=== PATIENT | female | born 1945 | race Caucasian/White ===

== ENCOUNTER → 2024-11-20 | Outpatient (CLI) | payer MEDICARE, MEDICAID, SELFPAY ==
--- NOTE | 2024-11-20 13:30 | XR_ITS ---
Examination: CT abdomen and pelvis without contrast. Coronal 3-D reconstructions. Sagittal 2-D reconstructions. Date and time of exam:November 20, 2024 1331 hours INDICATIONS: Right lower abdominal pain 13 pound weight loss in the last year CTDI: vol (mGy): 5.03 DLP: (mGycm): 246 Technique: Axial images of the abdomen have been obtained, 3 mm slice thickness Intravenous contrast material has not been administered. Low dose protocols were performed. One or more of the following dose reduction techniques were used; automated exposure control, adjustment of the mA and/or KV according to patient size, use of iterative reconstruction technique. Findings: Small pericardial effusion No focal liver lesions No gallstones No pancreatic mass 4 mm lower pole left renal calculus Abdominal aortic calcification no aneurysmal dilatation No bowel obstruction Normal appendix No diverticulitis No pelvic mass Urinary bladder wall thickening up to 5 mm Prominent lumbar spondylosis IMPRESSION: 4 mm lower pole left renal calculus Normal appendix Mild cystitis pattern
== END | disposition home or self-care (01) ==
PROVIDERS: Referring Provider Nurse Practitioner; Visit Provider Nurse Practitioner
DX: N20.0 Calculus of kidney (principal)
CPT/HCPCS: 74176

== ENCOUNTER 2024-12-12 07:55 | Day surgery (SDC) | payer MEDICARE, MEDICAID, SELFPAY ==
[2024-12-12] VITALS (10 sets, daily range): BP systolic 122–171; BP diastolic 59–89; PULSE 61–75; RESP 13–20; TEMP 36.3–36.7; O2SAT 97–100; BMI 20.2
[2024-12-12] MEDS: SODIUM CHLORIDE 0.9% 500 ML 500 ML 20 ML IV (08:58)
[2024-12-12] MEDS: DiphenhydrAMINE INJ 50 MG/ML VIAL 25 MG IV (09:49)
[2024-12-12] MEDS: ONDANSETRON INJ 2 MG/ML INJ 2 ML 4 MG IV (09:49)
[2024-12-12] MEDS: fentaNYL CIT INJ 50 mCg/ML AMP 2ML (ASD USE ONLY) IV (10:03)
[2024-12-12] MEDS: MIDAZOLAM INJ 1 MG/ML VIAL 2 ML (ASD USE ONLY) 2 MG IV (10:03)
--- NOTE | 2024-12-12 12:15 | SUR.PHASEII ---
1016: Pt received in [facility]. Report from Mary MILLER. Pt obtunded. Resp even, unlabored. VS stable. No distress observed. 1035: Pt more awake, alert. VS stable. Denies pain. Sitting up tolerating po fluids with no difficulty swallowing and no n/v. 1106: Pt fully awake, oriented. Pt assisted to restroom. Ambulation steady. Pt dressed and in transport chair. Pt and friend stated understanding of discharge instructions. Pt discharged from [facility] in stable condition.
== END 2024-12-12 11:06 | disposition home or self-care (01) ==
PROVIDERS: PCP Nurse Practitioner; Referring Provider Specialist; Visit Provider Specialist
PROC: 0DBE8ZX Excision of Large Intestine, Via Natural or Artificial Opening Endoscopic, Diagnostic (ICD-10-PCS; CPT 45380; principal; 2024-12-12 09:00)
PROC: (CPT 43239; 2024-12-12 09:00)
DX: K62.1 Rectal polyp (principal); D12.2 Benign neoplasm of ascending colon; K20.90 Esophagitis, unspecified without bleeding; K29.70 Gastritis, unspecified, without bleeding
CPT/HCPCS: 45385; 43239; A4649; J1200; J2250; J2405; J3010; J7040

== ENCOUNTER → 2024-12-16 | Outpatient (CLI) | payer MEDICARE, MEDICAID, SELFPAY ==
--- NOTE | 2024-12-16 12:00 | XR_ITS ---
Examination: CT chest with intravenous contrast CT abdomen with intravenous contrast CT pelvis with intravenous contrast 2-D coronal and sagittal reconstructions Time of exam: December 16, 2024 1116 hours INDICATIONS: Right lower quadrant abdominal pain one year, history 4 mm lower pole left renal calculus on CT study November 20, 2024 CTDI: vol (mGy) : 11.5 DLP: (mGycm): 128 Technique: Multiple axial images of the chest, abdomen and pelvis with intravenous contrast, 3.0 mm slice thickness. Images obtained post intravenous injection Isovue 370 60 cc. 2-D sagittal and coronal reconstructions. Low dose protocols were performed. One or more of the following dose reduction techniques were used; automated exposure control, adjustment of the mA and/or KV according to patient size, use of iterative reconstruction technique. Findings: Multiple left thyroid nodule subcentimeter No thoracic aortic aneurysmal dilatation Pulmonary artery opacification is suboptimal No mediastinal lymphadenopathy No pneumonia or pulmonary edema or pleural disease Trace pericardial thickening No focal liver or splenic lesions No gallstones No pancreatic mass 4 mm calculus lower pole left kidney Normal appendix No bowel obstruction No diverticulitis Atrophic uterus with areas of calcification Urinary bladder wall thickening up to 7 mm Significant osteopenia IMPRESSION: No mediastinal adenopathy, no pneumonia or pulmonary edema or pleural disease 4 mm calculus lower pole left kidney Urinary bladder wall thickening, mild, consider cystitis
== END | disposition home or self-care (01) ==
PROVIDERS: Referring Provider Specialist; Visit Provider Specialist
DX: N28.89 Other specified disorders of kidney and ureter (principal); N32.89 Other specified disorders of bladder
CPT/HCPCS: 71260; 74177; A4649; Q9967

== ENCOUNTER 2024-12-22 07:48 | Outpatient (RCR) | payer MEDICARE, MEDICAID, SELFPAY | END 2025-01-12 23:59 | disposition home or self-care (01) | LOC: SCTC 07:48 | PROVIDERS: PCP Nurse Practitioner; Referring Provider Nurse Practitioner; Visit Provider Nurse Practitioner Family | DX: R77.8 Other specified abnormalities of plasma proteins (principal); Z86.2 Personal history of diseases of the blood and blood-forming organs and certain disorders involving the immune mechanism; K20.90 Esophagitis, unspecified without bleeding; K29.70 Gastritis, unspecified, without bleeding | CPT/HCPCS: 99213; G0463 ==

== ENCOUNTER → 2025-01-16 | Outpatient (CLI) | payer MEDICARE, MEDICAID, SELFPAY ==
[2025-01-16 10:33] LABS: Basophils % (Auto) 1 % (0-2.5); Eosinophils # (Auto) 0.1 Thou/mm3 (0.0-0.5); Eosinophils % (Auto) 3 % (0-10); Hematocrit 34.6 % (36.0-46.0); Hemoglobin 11.7 g/dL (12.0-16.0); Immature Granulocytes % (Auto) 0 % (0-0); Immature Granulocytes Auto 0.01 Thou/mm3 (0.00-0.00); Immature Reticulocyte Fraction 9.3 % (3.0-15.9); Lymphocytes # (Auto) 1.1 Thou/mm3 (1.0-4.8); Lymphocytes % (Auto) 22 % (10-50); Mean Corpuscular HGB Conc 33.8 g/dl (31.0-37.0); Mean Corpuscular Hemoglobin 30.6 pg (25.0-35.0); Mean Corpuscular Volume 91 fL (80-100); Monocytes # (Auto) 0.4 Thou/mm3 (0.0-0.8); Monocytes % (Auto) 8 % (0-12); Neutrophils # (Auto) 3.2 Thou/mm3 (1.8-7.7); Neutrophils % (Auto) 66 % (37-80); Nucleated Red Blood Cell % 0 /100 WBC (0); Platelet Count 279 Thou/mm3 (140-440); RDW Standard Deviation 43.4 fL (36.4-46.3); Red Blood Count 3.82 Miln/mm3 (4.00-5.20); Reticulocyte % (Auto) 1.3 % (0.5-1.5); Reticulocyte Absolute Auto 49.7 Biln/L (25.0-75.0); Reticulocyte Hgb Content 34.7 pg (28.0-35.0); White Blood Count 4.8 Thou/mm3 (3.6-11.0)
[2025-01-16 10:54] LABS: Ferritin 397 ng/mL (7.3-270.7); Iron 129 mcg/dL (50-170); Percent Iron Saturation 42 % (20-55); Total Iron Binding Capacity 302 mcg/dL (250-425); Unsaturated Iron Binding 173 (225-295)
[2025-01-16 10:56] LABS: Alanine Aminotransferase 25 U/L (10-49); Albumin/Globulin Ratio 1.6 (1.2-2.2); Alkaline Phosphatase 43 U/L (46-116); Anion Gap 8 (7-16); Aspartate Amino Transferase 22 U/L (0-34); BUN/Creatinine Ratio 29 Ratio (12-20); Bilirubin,Total 0.8 mg/dL (0.3-1.2); Blood Urea Nitrogen 20 mg/dL (9-23); C-Reactive Protein < 0.5 mg/dL (0.0-0.9); Calcium 8.9 mg/dL (8.3-10.6); Calcium (Corrected) 8.9 mg/dL (8.5-10.1); Carbon Dioxide 30.8 mMol/L (20.0-31.0); Chloride 103 mMol/L (98-107); Creatinine (Component) 0.7 mg/dL (0.6-1.3); Globulin 2.5 gm/dL (2.3-3.5); Glucose 121 mg/dL (74-106); LDH (Lactate Dehydrogenase) 145 U/L (120-246); Osmolality,Calculated 286 (275-295); Potassium 3.9 mMol/L (3.4-5.1); Sodium 142 mMol/L (136-145); Total Protein 6.5 gm/dL (5.7-8.2); eGFR > 60 See Note
[2025-01-16 14:05] LABS: Folate 17.04 ng/mL (>5.38)
[2025-01-16 16:15] LABS: HIV (1&2) Antibody Rapid Non-Reactive
[2025-01-16 16:16] LABS: Hepatitis A Antibody IgM Non Reactive (Non React); Hepatitis B Core Antibody IgM Non Reactive (Non React); Hepatitis B Surface Antigen Non Reactive (Non React); Hepatitis C Antibody Non Reactive (Non React); Vitamin B12 646 pg/mL (211-911)
== END | disposition home or self-care (01) ==
LOC: SCTO 08:59
PROVIDERS: PCP Family Medicine; Referring Provider Nurse Practitioner Family; Visit Provider Nurse Practitioner Family
DX: R77.8 Other specified abnormalities of plasma proteins (principal)
CPT/HCPCS: 36415; 80053; 80074; 82607; 82728; 82746; 83540; 83550; 83615; 85025; 85046; 86140; 86703

== ENCOUNTER → 2025-02-04 | Outpatient (CLI) | payer MEDICARE, MEDICAID, SELFPAY ==
[2025-02-04 08:41] LABS: Flow Cytometry* See Sep Rpt; Misc Send Out* See Sep Rpt
[2025-02-04 09:35] LABS: Basophils % (Auto) 0 % (0-2.5); Eosinophils # (Auto) 0.2 Thou/mm3 (0.0-0.5); Eosinophils % (Auto) 3 % (0-10); Hematocrit 34.9 % (36.0-46.0); Hemoglobin 11.9 g/dL (12.0-16.0); Immature Granulocytes % (Auto) 0 % (0-0); Lymphocytes # (Auto) 1.1 Thou/mm3 (1.0-4.8); Lymphocytes % (Auto) 23 % (10-50); Mean Corpuscular HGB Conc 34.1 g/dl (31.0-37.0); Mean Corpuscular Hemoglobin 30.3 pg (25.0-35.0); Mean Corpuscular Volume 89 fL (80-100); Monocytes # (Auto) 0.5 Thou/mm3 (0.0-0.8); Monocytes % (Auto) 9 % (0-12); Neutrophils # (Auto) 3.3 Thou/mm3 (1.8-7.7); Neutrophils % (Auto) 65 % (37-80); Nucleated Red Blood Cell % 0 /100 WBC (0); Platelet Count 222 Thou/mm3 (140-440); RDW Standard Deviation 42.9 fL (36.4-46.3); Red Blood Count 3.93 Miln/mm3 (4.00-5.20)
[2025-02-04 09:55] LABS: Free T3 3.4 pg/mL (2.3-4.2); Free T4 (Free Thyroxine) 1.49 ng/dL (0.89-1.76); Thyroid Stimulating Hormone 2.01 uIU/mL (0.55-4.78)
== END | disposition home or self-care (01) ==
LOC: COPL 08:08
PROVIDERS: PCP Family Medicine; Referring Provider Specialist; Visit Provider Nurse Practitioner Family
DX: R79.89 Other specified abnormal findings of blood chemistry (principal); R63.4 Abnormal weight loss; E04.1 Nontoxic single thyroid nodule; R77.8 Other specified abnormalities of plasma proteins
CPT/HCPCS: 36415; 84439; 84443; 84481; 85025

== ENCOUNTER → 2025-02-16 | Outpatient (CLI) | payer MEDICARE, MEDICAID, SELFPAY ==
--- NOTE | 2025-02-16 14:00 | XR_ITS ---
Examination: MRI abdomen with intravenous contrast. MRI abdomen without intravenous contrast. Date and time of exam: 2024 at 1457 hours beginning 7 months ago, diagnosis of the specified abnormalities of plasma proteins Comparison CT abdomen and pelvis November 20, 2024 INDICATIONS: Left lower abdominal pain Technique: Multiple axial, sagittal and coronal sections of the abdomen obtained. Transverse images, TR 6020, TE 107. T1 weighted transverse images, TR 582, TE 9.5. T2-weighted sagittal images, TR 4000, TE 105. T2-weighted sagittal images, TR 4000, TE 5. Coronal images, TR 4210, TE 107. Axial and coronal images are obtained post 20 cc intravenous injection, gadolinium. Findings: No focal liver or splenic lesions Postcontrast images demonstrate no abnormal enhancing liver splenic or renal lesions No gallstones No common common bile duct or common hepatic duct stones No pancreatic mass or peripancreatic edema No hydronephrosis Negative for ascites Aorta normal size Spleen not enlarged No abdominal lymphadenopathy IMPRESSION: No focal liver lesions Normal gallbladder. Normal common hepatic common bile duct
--- NOTE | 2025-02-16 15:00 | XR_ITS ---
Examination: Thyroid sonography complete TECHNIQUE: Grayscale sonographic images thyroid lobes Exam date and time: February 16, 2025 1359 hours INDICATIONS: Abnormal thyroid function on laboratory examination this month FINDINGS: Right thyroid 4.6 cm Lower pole septated cyst 4 x 4 millimeter Left thyroid 4.7 cm Midpole nodule 10 x 10 mm Lower pole nodule 2.2 cm x 1.5 cm, 1.1 x 0.9 cm IMPRESSION: Left thyroid nodules as above, consider ultrasound-guided fine-needle aspiration of the largest nodule in the lower pole left thyroid
== END | disposition home or self-care (01) ==
LOC: SMRI 13:22
PROVIDERS: PCP Nurse Practitioner Family; Referring Provider Nurse Practitioner Family; Visit Provider Specialist
DX: R77.8 Other specified abnormalities of plasma proteins (principal); E04.2 Nontoxic multinodular goiter
CPT/HCPCS: 74183; 76536; A9579

== ENCOUNTER 2025-03-04 13:14 | Outpatient (RCR) | payer MEDICARE, MEDICAID, SELFPAY | END 2025-03-14 23:59 | disposition home or self-care (01) | LOC: SCTC 13:14 | PROVIDERS: PCP Family Medicine; Referring Provider Nurse Practitioner Family; Visit Provider Nurse Practitioner Family | DX: R79.0 Abnormal level of blood mineral (principal); R63.4 Abnormal weight loss; Z68.20 Body mass index [BMI] 20.0-20.9, adult; H91.90 Unspecified hearing loss, unspecified ear | CPT/HCPCS: 99212; G0463 ==

== ENCOUNTER 2025-06-10 14:25 | Outpatient (RCR) | payer MEDICARE, MEDICAID, SELFPAY ==
--- NOTE | 2025-06-15 22:16 | CTCFLWUP_ITS ---
Patient: CHINEDU ROCK : 1945 Page 2 of 4 FOLLOW UP NOTE DATE OF SERVICE: 06/10/2025 NAME: CHINEDU ROCK ACCOUNT: [id number] : 1945 AGE: 79 INTERVAL HISTORY: Mrs. Gissel Mcneil, a 79-year-old woman with a history of iron deficiency, presents for follow-up of elevated ferritin levels and recent weight loss. Despite a comprehensive workup, including imaging and endoscopic procedures, no malignancy or significant abnormalities have been found. She reports a weight loss of 13 pounds over the past year . ONCOLOGY HISTORY: DIAGNOSIS: Elevated ferritin HISTORY OF PRESENT ILLNESS: PREVIOUS NOTE: 79-year-old female is being seen today up [facility] for consultation consult was due to elevated ferritin levels of 606 on 10/03/2024 and on 12/03/2021 ferritin levels were 611. Patient also complaining of unintentional weight loss of 13 pounds in 1 year. Patient currently weighs 106 LB. Patient is accompanied by stepdaughter, Nicole. Patient recently had an EGD and colonoscopy by Dr. Landry, 12/12/2024. EGD and colonoscopy pathology report was negative for malignancy. Repeat colonoscopy in 5 years for surveillance, 2 polyps were removed for colonoscopy. Patient denies known history of liver disease. Denies known history of kidney disease. Denies alcohol use, denies tobacco use. Patient denies fever. 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 Tobacco?Use:?Denies ETOH?Use:?Denies Drug?Note:?Denies Social History Note:?Lives with ex - SHOCHET HISTORY: Menarche?-?Age:?15 Menopause:?Age?55 :?0 Live?Births:?0 MEDICATIONS: 1. alendronate - 70 mg 1 tab Weekly 2. atorvastatin - 10 mg 1 tab Daily 3. metFORMIN - 500 mg 1 tab Daily 4. Vitamin D3 - 5,000 unit 1 tab Weekly Medications Last Reconciled by Maria G Cortez MD on 06/10/2025 ALLERGIES: No Known Drug Allergies REVIEW OF SYSTEMS: A complete 14-point review of systems was performed and is negative except as noted in interval history. PHYSICAL EXAMINATION: VITAL SIGNS: Temperature?97.5, B/P?147/73, Oxygen?Saturation?97% Weight?114?lbs PAIN: 0 - No pain ECOG Performance Status: 0 - Asymptomatic and fully active GENERAL APPEARANCE: Appears well, in no apparent distress, appropriately interactive. HEENT: Normocephalic, no temporal wasting, normal conjunctiva, no scleral icterus, normal hearing, lips without lesions, neck normal range of motion, no lymphadenopathy CARDIOVASCULAR: Normal heart sounds PULMONARY: Normal respiratory effort, no respiratory distress or use of accessory muscles, speaking in full sentences, no tachypnea. EXTREMITIES: No pedal edema or cyanosis. SKIN: Normal skin appearance. NEUROLOGIC: Alert and oriented x4. PSHYCHIATRIC: Appropriate affect, mood normal, behavior normal, intact thought and speech. LABORATORY DATA: I have personally reviewed and interpreted each of the patient?s relevant lab tests, abnormal findings are below: Date 01/16/25 02/04/25 ??WHITE?BLOOD?COUNT?(Thou/mm3) 4.8 5.0 ??RED?BLOOD?COUNT?(Miln/mm3) 3.82?L 3.93?L ??HEMOGLOBIN?(gm/dl) 11.7?L 11.9?L ??HEMATOCRIT?(%) 34.6?L 34.9?L ??PLATELET?COUNT?(Thou/mm3) 279 222 ??NEUTROPHILS?%,?AUTO?(%) 66 65 ??LYMPH?%,?AUTO?(%) 22 23 ??NEUTROPHILS,?AUTO?(Thou/mm3) 3.2 3.3 ??RETICULOCYTE?ABSOLUTE?AUTO?(Biln/L) 49.7 ? ??TOTAL?IRON?BINDING?CAP?(S*)?(mcg/dL) 302 ? ??UNBOUND?IBC?(mcg/dL) 173?L ? ASSESSMENT/PLAN: Mrs. Gissel Mcneil, a 79-year-old female with a history of iron deficiency, presents for follow-up of elevated ferritin levels and recent weight loss. Elevated ferritin levels Assessment: Patient was initially referred for consultation due to elevated ferritin levels of 606 in September 2024. Labs on 10/02/2024 showed persistently elevated ferritin at 606 with iron saturation of 43%. Patient has a history of iron deficiency and has been on and off ferrous sulfate for a few months. Comprehensive workup has been initiated, including CT chest/abdomen/pelvis (12/17/2024) showing no mediastinal adenopathy or focal liver/splenic lesions, flow cytometry negative for diagnostic immunophenotypic abnormalities, and MRI abdomen showing no focal liver lesions. Colonoscopy and EGD (12/04/2024) were negative for malignancy. Additional labs including CRP, ESR, hepatitis panel, HIV, TB QuantiFERON, and HFE gene mutation were not collected,we will reorder and patient will complete. Patient do not have hemochromatosis Ferritin is 504 and naturally coming down All other iron labs do not reveal any overload Patient have arthritis at baseline and is likely because of elevated ferritin Initially elevated levels were likely because of poor oral intake Advised not to take further iron Will repeat labs in 3 months Weight loss Assessment: Patient reported weight loss of 13 pounds over the past year. Current weight is 107 pounds, up 1 pound from 106 pounds on 12/22/2024. The etiology of weight loss is unclear at this time, pending further workup results. Plan: - Continue to monitor weight at follow-up appointments - Reassess weight loss etiology after completion of pending diagnostic workup Hearing impairment Assessment: Patient iss hard of hearing and is supposed to wear hearing aids but is not currently using them. Plan: - Encourage patient to wear prescribed hearing aids ORDERS: Order # Description [id number] + Comprehensive Metabolic Panel - 12 + CBC with Auto Diff RETURN TO CLINIC: I reviewed the diagnosis, prognosis, and recommended treatment/procedure options with the patient (and/or their legal sales representatives), including the potential benefits, risks, side effects and alternative therapies. We also discussed the option of no treatment and the possibility of clinical trial participation, if applicable. All questions were addressed, and they demonstrated understanding. They provided informed consent to proceed with the proposed plan of care. BILLING AND COMPLIANCE: I reviewed external records from providers outside my specialty as summarized above. I spent a total of 50 minutes on this patient?s care on the day of their visit excluding time spent related to any billed procedures. This time includes time spent with the patient as well as time spent documenting in the medical record, reviewing patients records and tests, obtaining history, placing orders, communicating with other healthcare professionals, counseling the patient, family or caregiver, and/or care coordination for the diagnoses above. Electronically Signed by: Ish De Paz MD T: 10:14 PM CC: PCP: Ish De Paz Referring: Ish De Paz This document was completed utilizing speech recognition software. Grammatical errors, random word insertions, pronoun errors, and incomplete sentences are an occasional consequence of this system due to software limitations, ambient noise, and hardware issues. Any formal questions or concerns about the content, text or information contained within the body of this dictation should be directly addressed to the provider for clarification.
== END 2025-06-14 23:59 | disposition home or self-care (01) ==
LOC: SCTC 14:25
PROVIDERS: PCP Family Medicine; Referring Provider Internal Medicine Hematology & Oncology; Visit Provider Internal Medicine Hematology & Oncology
DX: R79.89 Other specified abnormal findings of blood chemistry (principal); M19.90 Unspecified osteoarthritis, unspecified site; R63.4 Abnormal weight loss; Z68.21 Body mass index [BMI] 21.0-21.9, adult; H91.90 Unspecified hearing loss, unspecified ear; Z86.2 Personal history of diseases of the blood and blood-forming organs and certain disorders involving the immune mechanism
CPT/HCPCS: 99212; G0463